=== PATIENT | male | born 1955 | race Caucasian/White ===

== ENCOUNTER 2020-05-01 06:42 | Outpatient (CLI) | payer BC ==
[2020-05-01 15:13] LABS: #Basophils 0.1 10x3/uL (0.0-0.2); #Eosinphils 0.3 10x3/uL (0.0-0.5); #Monocytes 0.6 10x3/uL (0.0-1.1); #Neutrophils 4.9 10x3/uL (1.5-8.4); %Eosinophils 3.5 % (0.0-6.0); %Lymphocytes 23.9 % (18.0-47.0); %Monocytes 8.1 % (0.0-10.0); %Neutrophils 63.2 % (40.0-75.0); Hemoglobin 16.7 g/dL (14.0-18.0); Mean Corpuscular HGB CONC 34.1 G/DL (32.0-36.0); Mean Corpuscular Hemoglobin 30.9 PG (27.0-33.0); Mean Corpuscular Volume 90.7 fl (80.0-100.0); Platelet Count 300 10x3/uL (130-400); RBC Distribution Width 12.8 % (11.5-14.5); White Blood Cell (WBC) Count 7.8 10x3/uL (4.5-11.0)
[2020-05-01 15:42] LABS: Anion Gap 16 mmol/L (10-20); BUN (Urea Nitrogen) 11 mg/dL (8.4-25.7); Calc. Creatinine Clearance 0 mL/min (70-130); Carbon Dioxide 28 mmol/L (23-31); Chloride 98 mmol/L (98-107); Potassium 4.2 mmol/L (3.5-5.1); Sodium 138 mmol/L (136-145)
[2020-05-01 15:43] LABS: Calcium 9.6 mg/dL (7.8-10.44); Glucose 125 mg/dL (80-115)
[2020-05-02 02:11] LABS: SARS-CoV-2 MS2 Positive; SARS-CoV-2 N Gene Negative; SARS-CoV-2 S Gene Negative; SARS-CoV-2 by NAA Not Detected (NotDetected); SARS-CoV-2 orf1ab Negative
== END 2020-05-01 06:43 | disposition home or self-care (01) ==
LOC: LABBT 06:42
PROVIDERS: ATTEND Orthopaedic Surgery
DX: Z01.818 Encounter for other preprocedural examination (principal); M19.012 Primary osteoarthritis, left shoulder; Z20.828 Contact with and (suspected) exposure to other viral communicable diseases
CPT/HCPCS: 80048; 85025; 87635; U0003

== ENCOUNTER 2020-05-01 13:00 | Inpatient (IN) | payer BC ==
[2020-05-03 09:57] VITALS: BMI 35.9
[2020-05-04] MEDS ORDERED: Fentanyl 100 MCG/2 ML VIAL ONE ×3 (06:25→09:36)
[2020-05-04] MEDS ORDERED: Midazolam HCl 2 mg/2 ml Vial ONE (06:41)
[2020-05-04] MEDS ORDERED: HYDROcodone/Acetaminophen 10/325 mg Tablet PO PRN ×3 (07:00→07:30)
[2020-05-04] MEDS ORDERED: traMADol HCl 50 MG TAB PO PRN ×4 (07:00→07:30)
[2020-05-04] MEDS ORDERED: Tranexamic Acid 1,000 MG/10 ML VIAL ONE (07:03)
[2020-05-04] MEDS ORDERED: Vancomycin 1.5 GRAM/300 ML BAG ONE (07:03)
[2020-05-04] MEDS ORDERED: Sodium Chloride 0.9% 100 ML ONE (07:03)
[2020-05-04] MEDS ORDERED: Fentanyl 100 MCG/2 ML VIAL SLOW IVP PRN (07:26)
[2020-05-04] MEDS ORDERED: Promethazine HCl 25 MG/ML VIAL IM PRN (07:30)
[2020-05-04] MEDS ORDERED: Ropivacaine 0.2% 550 ML 550 ML NERVE BLCK SCH (07:30)
[2020-05-04] MEDS ORDERED: Zolpidem Tartrate 5 MG TAB PO PRN (07:30)
[2020-05-04] MEDS ORDERED: Ondansetron PF 4 MG/2 ML Vial IVP PRN (07:30)
--- NOTE | 2020-05-04 10:06 | OP ---
DATE OF PROCEDURE: 05/04/2020 PROCEDURE PERFORMED: Left total shoulder arthroplasty using a Tornier, Glenoid Perform Cortiloc size medium 40, humerus is a Flex stem size 2C, a 43 x 16 high offset head. DOUGH MIXING MACHINE OPERATOR: Manjula Harris PA-C BLOOD LOSS: 200. SPECIMEN: None. DRAINS: None. COMPLICATION: None. The land surveyor assistant/co-surgeon was present through the entire procedure and was responsible for providing exposure, tissue retraction and any necessary limb or tissue manipulation required to obtain necessary reduction or hardware placement. The land surveyor assistant/co-surgeon also provided bleeding control, tissue closure, and suturing in conjunction with the primary surgeon. NARRATIVE REPORT: After standard deltopectoral approach, I examined the biceps tendon sheath which was inflamed and had a very thick bursal layer over the top with underlying ganglion. Biceps was opened. The biceps tendon sheath was opened. Biceps was in poor condition. It was taken off the superior glenoid tubercle and tacked and then tenodesed using #5 Ethibond suture to bone below the joint. The subscapularis was taken off using an osteotome to make a small lesser trochanteric osteotomy, tagged with four #5 Ethibond sutures. Head was dislocated. Osteophytes were trimmed. I released the anterior capsule, got the subscapularis to an elastic consistency. I then cut the humeral head at a 135-degree angle and trimmed the osteophytes. The head was then broached and sized appropriately. A trial prosthesis was left in the shaft and I approached the glenoid. Bone spurs were removed from around the glenoid. True center of the glenoid was identified. I made a single drill hole and reamed with an appropriate size reamer, trimmed osteophytes, punched the keel and did a trial reduction with the glenoid which appeared to be an appropriate fit. Trials were removed and irrigation was performed. The glenoid was punched into place and cement was allowed to cure. Extraneous cement was removed. Attention was turned back to the humerus where trial heads were used and the appropriate size was confirmed with the appropriate elasticity of the tissues. Trial was removed. Irrigation was performed. Four #5 Ethibond sutures were placed through the lesser tuberosity. The permanent implant was impacted into place. The subscapularis was repaired in a double-row fashion. The rotator interval was repaired with #1 Ethibond. Irrigation performed again. Deltopectoral interval was tacked closed with 0 Vicryl, subcutaneous closed with 2-0 Vicryl. The skin was closed with heather. Sterile dressings applied. The patient was placed in a sling. There were no complications. Job ID: [id number]
[2020-05-04] MEDS ORDERED: Bupivacaine 0.5% 10 ML VIAL ONE (10:11)
[2020-05-04] MEDS ORDERED: Ropivacaine 0.5% HCl/PF (150 MG/30 ML VIAL) ONE (10:50)
[2020-05-04] MEDS ORDERED: PROPOFOL 200 MG/20 ML VIAL ONE (10:50)
[2020-05-04] MEDS ORDERED: Calcium Chloride 1 GM/10 ML Abboject SYRINGE ONE (10:50)
[2020-05-04] MEDS ORDERED: ePHEDrine 50 MG/ML VIAL ONE (10:50)
[2020-05-04] MEDS ORDERED: Rocuronium Bromide 10 MG/ML (10ML VIAL) ONE (10:50)
[2020-05-04] MEDS ORDERED: Dexamethasone 20 MG/5 ML VIAL ONE (10:50)
[2020-05-04] MEDS ORDERED: PHENYLEPHRINE-NS 100 MCG/ML 10 ML SYRINGE ONE (10:50)
[2020-05-04] MEDS ORDERED: Ondansetron PF 4 MG/2 ML Vial ONE (10:50)
[2020-05-04] MEDS ORDERED: Glycopyrrolate 0.2 MG/ML 5 ML SYRINGE ONE (10:50)
[2020-05-04] MEDS ORDERED: Ropivacaine 0.2% HCl/PF (40 MG/20 ML VIAL) ONE (10:50)
[2020-05-04] MEDS ORDERED: Ketorolac Tromethamine 30 MG/ML VIAL ONE ×2 (10:55→17:37)
[2020-05-04] MEDS: Sodium Chloride 0.9% 1,000 ML IV SCH ×2 (11:26→22:08)
[2020-05-04] MEDS ORDERED: Ketorolac Tromethamine 30 MG/ML VIAL IVP SCH ×2 (11:45→12:00)
[2020-05-04] MEDS: Lisinopril/Hydrochlorothiazide 20 mg/12.5 mg Tablet PO SCH ×2 (11:45→20:30)
[2020-05-04] MEDS: CEFAZOLIN 2 GM in Premix Bag 1 BAG IVPB SCH (17:36)
[2020-05-04] MEDS: Ketorolac Tromethamine 30 MG/ML VIAL IVP SCH (17:38)
[2020-05-05] MEDS: CEFAZOLIN 2 GM in Premix Bag 1 BAG IVPB SCH
[2020-05-05] MEDS: Ketorolac Tromethamine 30 MG/ML VIAL IVP SCH ×2 (00:16→05:07)
[2020-05-05] MEDS: Sodium Chloride 0.9% 1,000 ML IV SCH (00:22)
[2020-05-05] MEDS: HYDROcodone/Acetaminophen 10/325 mg Tablet PO PRN ×3 (00:46→10:21)
[2020-05-05 07:35] VITALS: BP 111/72; TEMP 98.4
[2020-05-05] MEDS: Lisinopril/Hydrochlorothiazide 20 mg/12.5 mg Tablet PO SCH (07:57)
== END 2020-05-05 11:17 | disposition home or self-care (01) | DRG 483 ==
LOC: SURG A 05-04 06:13 → SJJU 05-04 18:03
PROVIDERS: ADMIT Orthopaedic Surgery; ATTEND Orthopaedic Surgery
PROC: 0RRK0JZ Replacement of Left Shoulder Joint with Synthetic Substitute, Open Approach (ICD-10-PCS; principal; 2020-05-04)
DX: M19.012 Primary osteoarthritis, left shoulder (principal); Z90.49 Acquired absence of other specified parts of digestive tract; Z79.899 Other long term (current) drug therapy; F17.200 Nicotine dependence, unspecified, uncomplicated; I10 Essential (primary) hypertension; E78.5 Hyperlipidemia, unspecified
CPT/HCPCS: 80048; 85025; 87635; A4306; C1713; J0690; J1100; J1885; J2250; J2405; J2704; J2795; J3010; J3370; J3490; U0003

== ENCOUNTER 2020-09-25 09:39 | Outpatient (CLI) | payer BC ==
[2020-09-25 12:15] LABS: #Basophils 0.1 10x3/uL (0.0-0.2); #Eosinphils 0.3 10x3/uL (0.0-0.5); #Monocytes 0.5 10x3/uL (0.0-1.1); #Neutrophils 2.9 10x3/uL (1.5-8.4); %Basophils 1.1 % (0.0-2.0); %Lymphocytes 30.6 % (18.0-47.0); %Monocytes 9.7 % (0.0-10.0); %Neutrophils 53.4 % (40.0-75.0); Hemoglobin 17.3 g/dL (13.5-17.5); Mean Corpuscular HGB CONC 33.9 g/dL (32.0-36.0); Mean Corpuscular Hemoglobin 29.6 pg (27.0-33.0); Mean Corpuscular Volume 87.4 fl (81.2-95.1); Mean Platelet Volume 9.5 fl (7.4-10.4); Platelet Count 282 10x3/uL (150-450); RBC Distribution Width 13.2 % (11.5-14.5); Red Blood Cell (RBC) Count 5.85 10x6/uL (4.32-5.72); White Blood Cell (WBC) Count 5.5 10x3/uL (3.5-10.5)
[2020-09-25 12:23] LABS: Anion Gap 17 mmol/L (10-20); BUN (Urea Nitrogen) 10 mg/dL (8.4-25.7); Calc. Creatinine Clearance 0 mL/min (70-130); Carbon Dioxide 24 mmol/L (23-31); Chloride 98 mmol/L (98-107); Glucose 89 mg/dL (80-115); Potassium 4.5 mmol/L (3.5-5.1); Sodium 134 mmol/L (136-145)
[2020-09-26 02:13] LABS: SARS-CoV-2 PCR by NAA Not Detected (NotDetected)
== END 2020-09-25 09:40 | disposition home or self-care (01) ==
LOC: LABBT 09:39
PROVIDERS: ATTEND Orthopaedic Surgery
DX: Z01.818 Encounter for other preprocedural examination (principal); M19.011 Primary osteoarthritis, right shoulder; Z20.822 Contact with and (suspected) exposure to COVID-19
CPT/HCPCS: 80048; 85025; 87635; 93005; 93010; U0003; U0005

== ENCOUNTER 2020-09-25 10:00 | Inpatient (IN) | payer BC ==
[2020-09-27 14:24] VITALS: BMI 35.9
[2020-09-28] MEDS ORDERED: Tranexamic Acid 1,000 MG/10 ML VIAL ONE (06:08)
[2020-09-28] MEDS ORDERED: Sodium Chloride 0.9% 100 ML ONE (06:08)
[2020-09-28] MEDS ORDERED: Vancomycin 1.5 GRAM/300 ML BAG 1.5 GM in Premix Bag 1 BAG IVPB SCH ×2 (06:30→21:00)
[2020-09-28] MEDS ORDERED: Fentanyl 100 MCG/2 ML VIAL ONE ×3 (06:50→09:59)
[2020-09-28] MEDS ORDERED: Lidocaine 1% (PF) 30 ML VIAL ONE (06:50)
[2020-09-28] MEDS ORDERED: Midazolam HCl 2 mg/2 ml Vial ONE (06:50)
[2020-09-28] MEDS ORDERED: Glycopyrrolate 0.2 MG/ML 5 ML SYRINGE ONE (07:00)
[2020-09-28] MEDS ORDERED: PHENYLEPHRINE-NS 100 MCG/ML 10 ML SYRINGE ONE (07:00)
[2020-09-28] MEDS ORDERED: Ketorolac Tromethamine 30 MG/ML VIAL ONE (07:00)
[2020-09-28] MEDS ORDERED: Lidocaine 1% PF 5 ML VIAL ONE (07:00)
[2020-09-28] MEDS ORDERED: Ropivacaine 0.5% HCl/PF (150 MG/30 ML VIAL) ONE (07:00)
[2020-09-28] MEDS ORDERED: Rocuronium Bromide 10 MG/ML (10ML VIAL) ONE (07:00)
[2020-09-28] MEDS ORDERED: PROPOFOL 200 MG/20 ML VIAL ONE (07:00)
[2020-09-28] MEDS ORDERED: Ondansetron PF 4 MG/2 ML Vial ONE (07:00)
[2020-09-28] MEDS ORDERED: traMADol HCl 50 MG TAB PO PRN ×5 (07:12→07:30)
[2020-09-28] MEDS ORDERED: HYDROcodone/Acetaminophen 10/325 mg Tablet PO PRN ×3 (07:12→07:30)
[2020-09-28] MEDS ORDERED: Phenylephrine 10 MG/ML VIAL ONE (07:19)
[2020-09-28] MEDS ORDERED: Fentanyl 100 MCG/2 ML VIAL IV PRN (07:28)
[2020-09-28] MEDS ORDERED: Ropivacaine 0.2% 550 ML 550 ML NERVE BLCK SCH (07:30)
[2020-09-28] MEDS ORDERED: Zolpidem Tartrate 5 MG TAB PO PRN (07:30)
[2020-09-28] MEDS ORDERED: Ondansetron PF 4 MG/2 ML Vial IVP PRN (07:30)
[2020-09-28] MEDS ORDERED: Promethazine HCl 25 MG/ML VIAL IM PRN (07:30)
[2020-09-28] MEDS: Lisinopril/Hydrochlorothiazide 20 mg/12.5 mg Tablet PO SCH ×2 (15:18→21:00)
[2020-09-28] MEDS: Meloxicam 7.5 MG TAB PO SCH ×2 (15:19→20:59)
[2020-09-28] MEDS: CEFAZOLIN 2 GM in Premix Bag 1 BAG IVPB SCH ×2 (15:44→23:53)
[2020-09-28] MEDS ORDERED: Vancomycin HCl 1.5 GM in Sodium Chloride 0.9% 250 ML 300 ML IVPB SCH (20:00)
[2020-09-29] MEDS: HYDROcodone/Acetaminophen 10/325 mg Tablet PO PRN ×2 (01:55→06:05)
[2020-09-29 08:08] VITALS: BP 105/69; TEMP 97.6
[2020-09-29] MEDS: Meloxicam 7.5 MG TAB PO SCH (09:50)
[2020-09-29] MEDS: Lisinopril/Hydrochlorothiazide 20 mg/12.5 mg Tablet PO SCH (09:52)
== END 2020-09-29 10:30 | disposition home or self-care (01) | DRG 483 ==
LOC: SURG A 09-28 05:56 → EDSTATUS 09-28 10:00 → SJJU 09-28 15:00
PROVIDERS: ADMIT Orthopaedic Surgery; ATTEND Orthopaedic Surgery
PROC: 0RRJ0JZ Replacement of Right Shoulder Joint with Synthetic Substitute, Open Approach (ICD-10-PCS; principal; 2020-09-28)
PROC: 0LS30ZZ Reposition Right Upper Arm Tendon, Open Approach (ICD-10-PCS; 2020-09-28)
DX: M19.011 Primary osteoarthritis, right shoulder (principal); F17.200 Nicotine dependence, unspecified, uncomplicated; Z20.822 Contact with and (suspected) exposure to COVID-19; M19.012 Primary osteoarthritis, left shoulder; I10 Essential (primary) hypertension; M75.21 Bicipital tendinitis, right shoulder; Z90.49 Acquired absence of other specified parts of digestive tract; Z79.899 Other long term (current) drug therapy
CPT/HCPCS: 80048; 85025; 87635; 93005; A4306; C1713; J0690; J1885; J2001; J2250; J2370; J2405; J2704; J2795; J3010; J3370; J3490; U0003; U0005

== ENCOUNTER 2023-07-31 09:37 | Outpatient (CLI) | payer MEDICARE, OTHER ==
[2023-07-31 11:16] LABS: #Basophils 0.1 10x3/uL (0.0-0.2); #Eosinphils 0.2 10x3/uL (0.0-0.5); #Monocytes 0.8 10x3/uL (0.0-1.1); #Neutrophils 3.9 10x3/uL (1.5-8.4); %Basophils 0.8 % (0.0-2.0); %Eosinophils 2.8 % (0.0-6.0); %Lymphocytes 21.2 % (18.0-47.0); %Monocytes 12.5 % (0.0-10.0); %Neutrophils 62.4 % (40.0-75.0); Hematocrit 49.6 % (38.8-50.0); Hemoglobin 17.2 g/dL (13.5-17.5); Mean Corpuscular HGB CONC 34.7 g/dL (32.0-36.0); Mean Corpuscular Hemoglobin 31.6 pg (27.0-33.0); Mean Corpuscular Volume 91.2 fl (81.2-95.1); Mean Platelet Volume 9.6 fl (7.4-10.4); Platelet Count 256 10x3/uL (150-450); Red Blood Cell (RBC) Count 5.44 10x6/uL (4.32-5.72); White Blood Cell (WBC) Count 6.2 10x3/uL (3.5-10.5)
[2023-07-31 11:18] LABS: Prothrombin Time 10.3 sec (9.5-12.1)
[2023-07-31 11:21] LABS: Anion Gap 15 mmol/L (10-20); BUN (Urea Nitrogen) 10 mg/dL (8.4-25.7); Calc. Creatinine Clearance 0 mL/min (70-130); Calcium 9.4 mg/dL (7.8-10.44); Carbon Dioxide 27 mmol/L (23-31); Chloride 101 mmol/L (98-107); Estimated GFR 77; Glucose 120 mg/dL (80-115); Potassium 4.2 mmol/L (3.5-5.1); Sodium 139 mmol/L (136-145)
== END 2023-07-31 09:38 | disposition home or self-care (01) ==
LOC: LABBT 09:37
PROVIDERS: ATTEND Orthopaedic Surgery
DX: Z01.818 Encounter for other preprocedural examination (principal); M17.12 Unilateral primary osteoarthritis, left knee
CPT/HCPCS: 80048; 85025; 85610; 87081; 93005; 93010

== ENCOUNTER 2023-08-04 05:33 | Observation (INO) | payer MEDICARE, OTHER ==
[2023-07-31 10:20] VITALS: BMI 31.5
[2023-08-04] MEDS ORDERED: CEFAZOLIN 2 GM VIAL ONE (06:23)
[2023-08-04] MEDS ORDERED: Tranexamic Acid 1,000 MG/10 ML VIAL ONE (06:23)
[2023-08-04] MEDS ORDERED: Sodium Chloride 0.9% 100 ML ONE ×2 (06:23→06:25)
[2023-08-04] MEDS ORDERED: Vancomycin (BATCH) 1.5 GM/300 ML BAG ONE (06:24)
[2023-08-04] MEDS ORDERED: Bupivacaine PF 0.5% 30 ML VIAL ONE (06:29)
[2023-08-04] MEDS ORDERED: fentaNYL 50 mcg/mL 1 mL Vial ONE ×6 (06:58→09:32)
[2023-08-04] MEDS ORDERED: Midazolam HCl 2 mg/2 ml Vial ONE (06:58)
[2023-08-04] MEDS ORDERED: Ropivacaine 0.5% HCl/PF (150 MG/30 ML VIAL) ONE (07:10)
[2023-08-04] MEDS ORDERED: Ropivacaine 2% HCl/PF (20 MG/10 ML VIAL) ONE (07:10)
[2023-08-04] MEDS ORDERED: Propofol 1,000 MG/100 ML VIAL IV ONE (07:24)
[2023-08-04] MEDS ORDERED: PROPOFOL 20 ML ONE (07:24)
[2023-08-04] MEDS ORDERED: Ondansetron PF 4 MG/2 ML Vial ONE (07:50)
[2023-08-04] MEDS ORDERED: Dexamethasone 4 mg/ml Vial ONE (07:50)
[2023-08-04] MEDS ORDERED: Glycopyrrolate 0.2 MG/ML 5 ML SYRINGE ONE (07:52)
[2023-08-04] MEDS ORDERED: fentaNYL 50 mcg/mL 1 mL Vial SLOW IVP PRN (08:02)
[2023-08-04] MEDS ORDERED: HYDROcodone/Acetaminophen 10/325 mg Tablet PO PRN (08:15)
[2023-08-04] MEDS ORDERED: Ropivacaine 0.2% 550 ML 550 ML NERVE BLCK SCH (08:15)
[2023-08-04] MEDS ORDERED: Zolpidem Tartrate 5 MG TAB PO PRN ×2 (08:15→09:27)
[2023-08-04] MEDS ORDERED: Promethazine HCl 25 MG/ML VIAL IM PRN ×2 (08:15→09:27)
[2023-08-04] MEDS ORDERED: traMADol HCl 50 MG TAB PO PRN (08:15)
[2023-08-04] MEDS ORDERED: Ondansetron PF 4 MG/2 ML Vial IVP PRN ×2 (08:15→09:27)
[2023-08-04] MEDS ORDERED: Ketorolac Tromethamine 30 MG (1 mL) VIAL ONE (08:39)
[2023-08-04] MEDS ORDERED: Lidocaine 2% PF 5 ML VIAL ONE (08:49)
[2023-08-04] MEDS ORDERED: HYDROmorphone 0.5 MG/0.5 ML SYRINGE ONE ×2 (09:06→09:32)
[2023-08-04] MEDS ORDERED: Acetaminophen 325 MG TAB PO PRN (09:27)
[2023-08-04] MEDS ORDERED: diphenhydrAMINE 25 MG CAP PO PRN (09:27)
[2023-08-04] MEDS: Sodium Chloride 0.9% 1,000 ML IV SCH (10:01)
[2023-08-04] MEDS: Ketorolac Tromethamine 30 MG (1 mL) VIAL IVP SCH (13:14)
[2023-08-04] MEDS: CEFAZOLIN 2 GM in Sodium Chloride 0.9% 100 ML IVPB SCH (13:14)
[2023-08-04] MEDS ORDERED: Ketorolac Tromethamine 30 MG (1 mL) VIAL IVP SCH (14:00)
[2023-08-04] MEDS: FLU VACC QS2023(65UP)/MF59C/PF 60 MCG/0.5 ML SYRINGE IM ONE (16:55)
[2023-08-04] MEDS: Aspirin 81 mg Enteric Coated Tablet PO SCH (20:49)
[2023-08-04] MEDS: Ferrous Gluconate 324 MG TAB PO SCH (20:49)
[2023-08-04] MEDS: traMADol HCl 50 MG TAB PO PRN (20:49)
[2023-08-04] MEDS: Senokot S 8.6-50 MG TAB PO SCH (20:50)
[2023-08-04] MEDS ORDERED: Non-Formulary Item 1 EACH (Lisinopril/Hydrochlorothiazide [Lisinopril-Hctz 20-12.5 Mg Tab PO SCH (21:00)
[2023-08-05 04:33] LABS: Hematocrit 38.3 % (42.0-52.0); Hemoglobin 12.7 g/dL (14.0-18.0); Mean Corpuscular HGB CONC 33.2 g/dL (32.0-36.0); Mean Corpuscular Hemoglobin 30.9 pg (27.0-31.0); Mean Corpuscular Volume 93.2 fl (78.0-98.0); Mean Platelet Volume 9.8 fL (7.4-10.4); Platelet Count 188 10x3/uL (130-400); RBC Distribution Width 13.7 % (11.5-14.5); Red Blood Cell (RBC) Count 4.11 mill/uL (4.70-6.10); White Blood Cell (WBC) Count 8.9 10x3/uL (4.8-10.8)
[2023-08-05 07:46] VITALS: BP 134/78; TEMP 98.2
[2023-08-05] MEDS: HYDROcodone/Acetaminophen 10/325 mg Tablet PO PRN (09:05)
[2023-08-05] MEDS: Hydrochlorothiazide 25 MG TAB PO SCH (09:06)
[2023-08-05] MEDS: Lisinopril 20 MG TAB PO SCH (09:07)
[2023-08-05] MEDS: Multivitamin W/ Minerals 1 TAB PO SCH (09:08)
== END 2023-08-05 10:56 | disposition home or self-care (01) ==
LOC: SDC 05:33 → SJJU 10:20 → SDC 12:46
PROVIDERS: ADMIT Orthopaedic Surgery; ATTEND Orthopaedic Surgery
PROC: 0SRD0JZ Replacement of Left Knee Joint with Synthetic Substitute, Open Approach (ICD-10-PCS; principal; 2023-08-04)
DX: M17.0 Bilateral primary osteoarthritis of knee (principal); F17.200 Nicotine dependence, unspecified, uncomplicated
CPT/HCPCS: 27447; 73560; 85027; 97110 ×2; 97116 ×2; 97530 ×2; A4306; C1776; J3010; J3370; 36415; J0665; J1100; J1170; J1885; J2001; J2250; J2405; J2704; J2795; J3490; J7050

== ENCOUNTER 2024-03-14 07:45 | Inpatient (IN) | payer MEDICARE, OTHER ==
[2024-03-14] MEDS ORDERED: Aspirin Chewable 81 MG TAB ONE (07:57)
[2024-03-14] MEDS ORDERED: NOREPINEPHRINE 8 MG/250 ML-D5W 250 ML ONE (08:06)
[2024-03-14 08:23] LABS: Hematocrit 47.7 % (42.0-52.0); Hemoglobin 15.7 g/dL (14.0-18.0); Mean Corpuscular HGB CONC 32.9 g/dL (32.0-36.0); Mean Corpuscular Hemoglobin 31.3 pg (27.0-31.0); Mean Corpuscular Volume 95.2 fL (78.0-98.0); Mean Platelet Volume 9.7 fL (7.4-10.4); Platelet Count 96 10x3/uL (130-400); RBC Distribution Width 13.3 % (11.5-14.5); Red Blood Cell (RBC) Count 5.01 mill/uL (4.70-6.10)
[2024-03-14 08:29] LABS: INR-International Normal Ratio 1.3; PTT 29.4 sec (22.9-36.1); Prothrombin Time 15.9 sec (12.0-14.7)
[2024-03-14 08:32] LABS: ALT (SGPT) 67 U/L (8-55); AST (SGOT) 49 U/L (5-34); Alkaline Phosphatase 69 U/L (40-110); Anion Gap 20 mmol/L (10-20); BUN (Urea Nitrogen) 21 mg/dL (8.4-25.7); Bilirubin, Total 0.8 mg/dL (0.2-1.2); Calc. Creatinine Clearance 0 mL/min (70-130); Calcium 8.7 mg/dL (7.8-10.44); Carbon Dioxide 21 mmol/L (23-31); Chloride 99 mmol/L (98-107); Estimated GFR 56; Globulin 2.5 g/dL (2.4-3.5); Glucose 275 mg/dL (80-115); Lipase 11 U/L (8-78); Magnesium 2.2 mg/dL (1.6-2.6); Potassium 3.5 mmol/L (3.5-5.1); Protein, Total 5.5 g/dL (5.8-8.1); Sodium 136 mmol/L (136-145)
[2024-03-14 08:45] LABS: Troponin I 0.537 ng/mL (< 0.028)
[2024-03-14] MEDS ORDERED: ALTEPLASE 50 MG/50 ML VIAL ONE (08:45)
[2024-03-14 08:56] LABS: Burr Cells SLIGHT = 2-5 cells HPF (0-1); Macrocytosis SLIGHT = 6-15 cells HPF (0-5); Ovalocytes SLIGHT = 2-5 cells HPF (0-1); Platelet Adequacy Comment Platelets Decreased
[2024-03-14 09:05] LABS: #Basophils 0.03 10x3/uL (0.0-0.2); %Basophils 0.2 % (0.0-1.0); %Eosinophils 0.5 % (0.0-10.0); %Monocytes 8.5 % (0.0-10.0); %Neutrophils 73.6 % (42.0-75.0)
[2024-03-14] MEDS ORDERED: Ondansetron ODT 4 MG TAB PO PRN (10:07)
[2024-03-14] MEDS ORDERED: Ondansetron PF 4 MG/2 ML Vial IVP PRN (10:07)
[2024-03-14 10:39] LABS: Hematocrit 47.4 % (42.0-52.0); Hemoglobin 16.3 g/dL (14.0-18.0); Platelet Count 86 10x3/uL (130-400)
[2024-03-14 10:50] LABS: Bacteria/HPF None Seen HPF (None Seen); Bilirubin Negative (Negative); Blood, Urine Trace (Negative); CAUTI Indications for Culture Pelvic or flank pain; Clarity Clear (Clear); Glucose, Urine (Dipstick) Normal (Negative); Ketone, Urine Negative (Negative); Leukocyte Negative Leu/uL (Negative); Nitrite Negative (Negative); Protein, Urine (Dipstick) 70 mg/dL (Neg-Trace); Squamous Epithelial 0-3 HPF (0-3); Urobilinogen Normal mg/dL (Less than 2); WBC/HPF 0-3 HPF (0-3)
[2024-03-14 10:52] LABS: Urine Culture Reflex No No
[2024-03-14] MEDS ORDERED: NOREPINEPHRINE 8 MG/250 ML-D5W 250 ML IVPB SCH (11:00)
[2024-03-14 11:27] LABS: Critical Call Chem Troponin I RESULT DECREASING; Troponin I 0.476 ng/mL (< 0.028)
[2024-03-14] MEDS: Heparin 10,000 UNITS/ 10 ML VIAL SLOW IVP SCH (12:43)
[2024-03-14] MEDS: Heparin 25,000 units/D5W 500 ML IVPB SCH (12:49)
[2024-03-14] MEDS ORDERED: Iopamidol 370 76% 100 ML VIAL ONE (12:55)
[2024-03-14 15:01] LABS: Troponin I 1.804 ng/mL (< 0.028)
[2024-03-14 17:25] LABS: INR-International Normal Ratio 1.7; Prothrombin Time 19.8 sec (12.0-14.7)
[2024-03-14 17:45] LABS: PTT Greater than 250.0 sec (22.9-36.1)
[2024-03-14 18:03] LABS: D-Dimer Test Greater than 20.00 mcg/mL (0.27-0.43)
[2024-03-14] MEDS: Famotidine/PF 20 mg/2ml Vial SLOW IVP SCH (20:18)
[2024-03-15 03:37] LABS: #Basophils 0.03 10x3/uL (0.0-0.2); %Basophils 0.2 % (0.0-1.0); %Eosinophils 1.4 % (0.0-10.0); %Lymphocytes 23.6 % (21.0-51.0); %Monocytes 7.2 % (0.0-10.0); %Neutrophils 67.1 % (42.0-75.0); Hematocrit 40.4 % (42.0-52.0); Hemoglobin 13.6 g/dL (14.0-18.0); Mean Corpuscular HGB CONC 33.7 g/dL (32.0-36.0); Mean Corpuscular Hemoglobin 31.3 pg (27.0-31.0); Mean Corpuscular Volume 92.9 fL (78.0-98.0); Mean Platelet Volume 10.3 fL (7.4-10.4); Platelet Count 101 10x3/uL (130-400); RBC Distribution Width 13.6 % (11.5-14.5); Red Blood Cell (RBC) Count 4.35 mill/uL (4.70-6.10)
[2024-03-15 03:54] LABS: ALT (SGPT) 61 U/L (8-55); AST (SGOT) 33 U/L (5-34); Albumin 2.7 g/dL (3.4-4.8); Alkaline Phosphatase 58 U/L (40-110); Anion Gap 10 mmol/L (10-20); BUN (Urea Nitrogen) 21 mg/dL (8.4-25.7); Bilirubin, Total 0.5 mg/dL (0.2-1.2); Calc. Creatinine Clearance 85 mL/min (70-130); Calcium 8.3 mg/dL (7.8-10.44); Carbon Dioxide 29 mmol/L (23-31); Chloride 102 mmol/L (98-107); Estimated GFR 62; Globulin 2.3 g/dL (2.4-3.5); Glucose 101 mg/dL (80-115); Potassium 3.5 mmol/L (3.5-5.1); Sodium 137 mmol/L (136-145)
[2024-03-15 05:04] VITALS: BMI 34.1
[2024-03-15] MEDS: Apixaban 5 MG TAB PO SCH (10:16)
[2024-03-15] MEDS: Famotidine 20 MG TAB PO SCH (20:12)
[2024-03-16] MEDS: Acetaminophen/Codeine 30-300mg Tablet PO PRN (00:21)
[2024-03-16 05:42] LABS: Anion Gap 11 mmol/L (10-20); BUN (Urea Nitrogen) 15 mg/dL (8.4-25.7); Calc. Creatinine Clearance 110 mL/min (70-130); Calcium 8.4 mg/dL (7.8-10.44); Carbon Dioxide 27 mmol/L (23-31); Chloride 103 mmol/L (98-107); Estimated GFR 82; Glucose 92 mg/dL (80-115); Potassium 4.3 mmol/L (3.5-5.1); Sodium 137 mmol/L (136-145)
[2024-03-16 05:50] LABS: #Basophils 0.03 10x3/uL (0.0-0.2); %Basophils 0.2 % (0.0-1.0); %Eosinophils 1.5 % (0.0-10.0); %Lymphocytes 15.9 % (21.0-51.0); %Monocytes 7.6 % (0.0-10.0); %Neutrophils 74.3 % (42.0-75.0); Hematocrit 37.7 % (42.0-52.0); Hemoglobin 12.8 g/dL (14.0-18.0); Mean Corpuscular Hemoglobin 31.3 pg (27.0-31.0); Mean Corpuscular Volume 92.2 fL (78.0-98.0); Mean Platelet Volume 9.7 fL (7.4-10.4); Platelet Count 123 10x3/uL (130-400); RBC Distribution Width 13.4 % (11.5-14.5); Red Blood Cell (RBC) Count 4.09 mill/uL (4.70-6.10)
[2024-03-16] MEDS: FLU (Fluad Triv) TS24-25 (65UP)/MF59C/PF 45 MCG/0.5 ML Syringe IM ONE (09:19)
[2024-03-16 10:28] LABS: Hematocrit 41.3 % (42.0-52.0); Hemoglobin 13.7 g/dL (14.0-18.0); Platelet Count 148 10x3/uL (130-400)
[2024-03-16 13:00] LABS: Cardiolipin IgA Ab 2.8 APL-U/mL (<14 Negative); Cardiolipin IgG Ab 0.7 GPL-U/mL (<10 Negative); Cardiolipin IgM Ab Less than 0.9 MPL-U/mL (<10 Negative); EliA APS New Method **** NEW METHOD ****
[2024-03-16] MEDS: Sacubitril 24MG/Valsartan 26 MG TAB PO SCH (20:17)
[2024-03-17] MEDS: Empagliflozin 10 MG TAB PO SCH (08:53)
[2024-03-17] MEDS ORDERED: FLU (Fluad Triv) TS24-25 (65UP)/MF59C/PF 45 MCG/0.5 ML Syringe IM ONE (09:24)
[2024-03-17] MEDS: FLU (Fluad Triv) TS24-25 (65UP)/MF59C/PF 45 MCG/0.5 ML Syringe ONE (10:49)
[2024-03-17 12:26] VITALS: TEMP 98
[2024-03-18] MEDS ORDERED: FLU (Fluad Triv) TS24-25 (65UP)/MF59C/PF 45 MCG/0.5 ML Syringe IM ONE (11:00)
[2024-03-22] MEDS ORDERED: Apixaban 5 MG TAB PO SCH (09:00)
== END 2024-03-17 12:33 | disposition home or self-care (01) | DRG 299 ==
LOC: ERS 07:45 → CCU 10:42
PROVIDERS: ADMIT Internal Medicine; ATTEND Hospitalist
PROC: 3E03317 Introduction of Other Thrombolytic into Peripheral Vein, Percutaneous Approach (ICD-10-PCS; principal; 2024-03-14)
PROC: 3E033XZ Introduction of Vasopressor into Peripheral Vein, Percutaneous Approach (ICD-10-PCS; 2024-03-14)
PROC: 3E02340 Introduction of Influenza Vaccine into Muscle, Percutaneous Approach (ICD-10-PCS; 2024-03-16)
DX: I82.442 Acute embolism and thrombosis of left tibial vein (principal); I26.92 Saddle embolus of pulmonary artery without acute cor pulmonale; R57.8 Other shock; I5A Non-ischemic myocardial injury (non-traumatic); I42.9 Cardiomyopathy, unspecified; I10 Essential (primary) hypertension; Z96.652 Presence of left artificial knee joint; I82.412 Acute embolism and thrombosis of left femoral vein; F17.210 Nicotine dependence, cigarettes, uncomplicated; I25.2 Old myocardial infarction; Z90.49 Acquired absence of other specified parts of digestive tract; Z23 Encounter for immunization
CPT/HCPCS: 36415; 36556; 51702; 71045; 71275; 80048; 80053; 81001; 83090; 83605; 83690; 83735; 83880; 84145; 84443; 84484; 85014; 85018; 85025; 85049; 85300; 85303; 85306; 85307; 85598; 85610; 85730; 86147; 87040; 87086; 90653; 93005; 93306; 96365; 96366; J1644; J2997; J3490; Q9967

== ENCOUNTER 2024-03-18 04:15 | Emergency (ER) | payer MEDICARE, OTHER ==
[2024-03-18 05:05] LABS: #Basophils 0.05 10x3/uL (0.0-0.2); %Basophils 0.5 % (0.0-1.0); %Eosinophils 2.3 % (0.0-10.0); %Lymphocytes 14.1 % (21.0-51.0); %Monocytes 8.6 % (0.0-10.0); %Neutrophils 73.8 % (42.0-75.0); Hematocrit 40.8 % (42.0-52.0); Hemoglobin 13.7 g/dL (14.0-18.0); Mean Corpuscular HGB CONC 33.6 g/dL (32.0-36.0); Mean Corpuscular Hemoglobin 31.3 pg (27.0-31.0); Mean Corpuscular Volume 93.2 fL (78.0-98.0); Platelet Count 197 10x3/uL (130-400); RBC Distribution Width 13.2 % (11.5-14.5); Red Blood Cell (RBC) Count 4.38 mill/uL (4.70-6.10)
[2024-03-18 05:20] LABS: Bacteria/HPF None Seen HPF (None Seen); Bilirubin Negative (Negative); Blood, Urine 3+ (Negative); CAUTI Indications for Culture Acute Hematuria; Clarity Turbid (Clear); Glucose, Urine (Dipstick) Greater than 1000 mg/dL (Negative); Ketone, Urine Negative (Negative); Leukocyte Negative Leu/uL (Negative); Nitrite Negative (Negative); Protein, Urine (Dipstick) Negative (Neg-Trace); RBC/HPF Greater than 50 HPF (0-3); Specific Gravity, Urine 1.013 (1.002-1.036); Squamous Epithelial None Seen HPF (0-3); Urobilinogen Normal mg/dL (Less than 2); pH, Urine 6.5 (5.0-9.0)
[2024-03-18 05:30] LABS: ALT (SGPT) 41 U/L (8-55); AST (SGOT) 19 U/L (5-34); Albumin 2.9 g/dL (3.4-4.8); Alkaline Phosphatase 65 U/L (40-110); Anion Gap 11 mmol/L (10-20); BUN (Urea Nitrogen) 15 mg/dL (8.4-25.7); Bilirubin, Total 0.8 mg/dL (0.2-1.2); CK (CPK) 27 U/L (30-200); Calc. Creatinine Clearance 0 mL/min (70-130); Carbon Dioxide 23 mmol/L (23-31); Chloride 105 mmol/L (98-107); Estimated GFR 90; Globulin 3.1 g/dL (2.4-3.5); Glucose 105 mg/dL (80-115); Sodium 135 mmol/L (136-145)
[2024-03-18 05:31] LABS: INR-International Normal Ratio 1.2; PTT 36.7 sec (22.9-36.1); Prothrombin Time 15.4 sec (12.0-14.7)
[2024-03-18 05:37] LABS: Urine Culture Reflex Yes Yes
== END 2024-03-18 08:46 | disposition home or self-care (01) ==
LOC: ERS 04:15
DX: R31.9 Hematuria, unspecified (principal); I11.0 Hypertensive heart disease with heart failure; I50.9 Heart failure, unspecified; F17.210 Nicotine dependence, cigarettes, uncomplicated; Z92.82 Status post administration of tPA (rtPA) in a different facility within the last 24 hours prior to admission to current facility
CPT/HCPCS: 36415; 74177; 80053; 81001; 82550; 83605; 85025; 85610; 85730; 87086